=== PATIENT | female | born 1950 | race Caucasian/White ===

== ENCOUNTER 2020-12-06 15:24 | Emergency (ER) | payer OTHER, MEDICARE ==
[2020-12-06 16:00] VITALS: BP 126/78; PULSE 86; TEMP 98; BMI 25.5
== END 2020-12-06 16:26 | disposition home or self-care (01) ==
LOC: FER 15:24
DX: S80.862A Insect bite (nonvenomous), left lower leg, initial encounter (principal); W57.XXXA Bitten or stung by nonvenomous insect and other nonvenomous arthropods, initial encounter; Y92.9 Unspecified place or not applicable
CPT/HCPCS: 99283-25

== ENCOUNTER 2022-06-18 14:22 | Emergency (ER) | payer OTHER, MEDICARE ==
[2022-06-18 15:02] VITALS: BP 110/76; PULSE 96; RESP 18; TEMP 98.4; BMI 24.3
== END 2022-06-18 16:03 | disposition home or self-care (01) ==
LOC: FER 14:22
DX: R21 Rash and other nonspecific skin eruption (principal)
CPT/HCPCS: 99283-25